=== PATIENT | male | born 1980 | race Caucasian/White ===

== ENCOUNTER 2017-08-04 00:04 | Emergency (ER) | payer OTHER ==
[2017-08-10] MEDS ORDERED: PERCOCET 10/3251 TA1 PO (15:18)
== END 2017-08-04 01:50 | disposition home or self-care (01) ==
LOC: D.ER 00:04
DX: S42.102A Fracture of unspecified part of scapula, left shoulder, initial encounter for closed fracture (principal); W19.XXXA Unspecified fall, initial encounter; Y93.89 Activity, other specified; Y92.027 Garden or yard of mobile home as the place of occurrence of the external cause

== ENCOUNTER 2017-08-13 12:00 | Day surgery (SDC) | payer OTHER ==
[~2017-08-13 12:00] MED LIST: PERCOCET 10/3251 TA1 PO
[2017-08-13 13:38] VITALS: BP 112/76; BMI 25.1
[2017-08-13] MEDS ORDERED: PERCOCET 10/3251 TA1 PO (15:40)
--- NOTE | 2017-08-13 17:05 | NUR ---
PATIENT AMBULATES TO BATHROOM WITHOUT UNSTEADINESS OR DIZZINESS, VOIDS LARGE AMOUNT IN TOILET. RIGHT AC PIV DC'D WITH TIP INTACT. PATIENT DRESSING IN PERSONAL CLOTHING WITH SPOUSE ASSISTANCE
--- NOTE | 2017-08-13 17:20 | NUR ---
PATIENT DISCHARGED HOME VIA WHEELCHAIR TO PRIVATE VEHICLE WITH SPOUSE
--- NOTE | 2017-08-20 13:44 | OP ---
PATIENT NAME: ROCIO CALIX MEDICAL RECORD: [id number] :78 LOCATION:[facility] ADMISSION DATE: SURGEON: JOHNNIE GARCIA MD DATE OF OPERATION: 08/13/2017 PREOPERATIVE DIAGNOSIS: Fracture, displaced left clavicle. POSTOPERATIVE DIAGNOSIS: Fracture, displaced left clavicle. PROCEDURE: Open reduction internal fixation of fractured displaced left clavicle. SURGEON: Johnnie Garcia MD ANESTHESIA: General. INTRAOPERATIVE COMPLICATIONS: None. SUMMARY OF PATHOLOGIC FINDINGS: The patient had a midshaft clavicular fracture obliquely oriented fracture that was easily reducible and then plated. OPERATIVE SUMMARY IN DETAIL: After obtaining the appropriate preoperative orthopedic surgery consent as well as anesthetic consultation, evaluation and clearance, the patient was brought to the operating room and placed on the operating table in supine position. After general laryngeal mask airway was administered, the patient was placed in the beach chair position. All pressure points were well padded. The patient's clavicle and shoulder area were prepped and draped in routine sterile fashion. Incision made directly over the clavicle fracture, taken down to the level of fracture. Dissection was carried out in the subperiosteal plane. Fracture was identified. Fracture hematoma was removed. The fracture was reduced and then an open reduction internal fixation was performed using the [place] VariAx 6-hole clavicle plate. Having completed this, fluoroscopy was utilized to verify the position and placement. The wound was then copiously irrigated and closed with #1 Vicryl followed by 2-0 Vicryl and 3-0 Vicryl with Mastisol and Steri-Strips. Sterile dressings were applied. The patient was awakened and taken to the recovery room in stable condition. All final needle and sponge counts were correct. TRANSINT:[id number] Voice Confirmation ID: [id number] DOCUMENT ID: [id number] JOHNNIE GARCIA MD at 1344 CC: [id number] DICTATION DATE: 08/20/17 1314 GENERATOR OPERATOR: 08/20/17 1328 [facility] 08/13/17 [facility] [address] [place] [address]
--- NOTE | 2017-09-02 09:32 | OP ---
PATIENT NAME: ROCIO CALIX MEDICAL RECORD: [id number] :78 LOCATION:[facility] ADMISSION DATE: SURGEON: JOHNNIE GARCIA MD DATE OF OPERATION: 08/13/2017 PREOPERATIVE DIAGNOSIS: Displaced left clavicle fracture. POSTOPERATIVE DIAGNOSIS: Displaced left clavicle fracture. PROCEDURE: Open reduction and internal fixation of displaced left clavicle fracture. SURGEON: Jhonnie Garcia MD ANESTHESIA: General. INTRAOPERATIVE COMPLICATIONS: None. SUMMARY OF PATHOLOGIC FINDINGS: The patient had a displaced left clavicle fracture that was easily amenable to operative fixation. OPERATIVE SUMMARY IN DETAIL: After obtaining the appropriate preoperative orthopedic surgery consent as well as anesthetic consultation, evaluation and clearance, the patient was brought to the operating room and placed on the operating table in supine position. After general laryngeal mask was administered, the patient was placed in a slight beach chair position. All pressure points were well padded. He was held firmly to the operating table using the vacuum pack suction system. Left upper extremity and shoulder and clavicular area were prepped and draped in a routine sterile fashion. Incision made directly over the clavicle, taken down to the level of the fracture, very gentle periosteal dissection was carried out for placement of the plate, the clavicle was reduced and held in reduction using fracture clamps. [place] VariAx plate was then put into place and serial and sequential drill and fill with both combination of both locking and nonlocking screws for good compression. This was done all under fluoroscopic guidance. After this was finished, radiographs were taken and sent to the radiologist for final review. Having completed this, the wound was copiously irrigated and closed in a subcuticular fashion with 2-0 followed by Mastisol and Steri-Strips. The patient was awakened, taken to the recovery in stable condition. All final needle and sponge counts were correct. TRANSINT:[id number] Voice Confirmation ID: [id number] DOCUMENT ID: [id number] JOHNNIE GARCIA MD at 0932 CC: [id number] DICTATION DATE: 08/31/17 172 LOW VOLTAGE ELECTRICIAN: 08/31/17 2323 [facility] 08/13/17 [place] [address]
== END 2017-08-13 17:20 | disposition home or self-care (01) ==
LOC: D.OPS 12:00 → D.PAN 14:30 → D.OPS 15:45
DX: S42.002A Fracture of unspecified part of left clavicle, initial encounter for closed fracture (principal); S42.115A Nondisplaced fracture of body of scapula, left shoulder, initial encounter for closed fracture; V86.95XA Unspecified occupant of 3- or 4- wheeled all-terrain vehicle (ATV) injured in nontraffic accident, initial encounter; F17.200 Nicotine dependence, unspecified, uncomplicated; K21.9 Gastro-esophageal reflux disease without esophagitis; Z01.812 Encounter for preprocedural laboratory examination